=== PATIENT | female | born 1955 | race Caucasian/White ===

== ENCOUNTER 2024-12-19 14:21 | Emergency (ER) | payer MEDICARE, MEDICAID ==
[~2024-12-19] VITALS: Ht 162.6 cm; Wt 59.1 kg
[2024-12-19 14:22] VITALS: BP 109/63; TEMP 98.4
[2024-12-19] MEDS ORDERED: NAPR-56 PO (14:58)
--- NOTE | 2024-12-19 14:59 | Physician Documentation ---
History of Present Illness ~ Chief Complaint: Bite-insect Stated Complaint: SPIDER BITE Time Seen by MD: 14:44 OK to notify your PCP?: Yes Source: patient Mode of Arrival: POV Exam Limitations: no limitations HPI 69-year-old right-handed female with chief complaint discoloration to her right forearm and elbow which she noticed a few days ago. 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 She denies any elbow pain. She denies any decreased range of motion. She states the discoloration has been gradually going from her elbow down into her forearm and she is concerned about this. She states this all started after she leaned with her elbow on her bathtub which is something she does all the time. She states she did not hit her elbow, but after she did this she states my elbow was really sticking out. No pre-arrival treatment. Medication Reconciliation Allergies: Coded Allergies: No Known Allergies (Unverified , 12/19/24) Past Medical History Past Medical History: No Pertinent History Past Surgical History: noncontributory Drug Use: none Lives with: Mother Review of Systems All Other Systems at this time: Reviewed and Negative Physical Exam Vital Signs: Temperature: 98.4, Source: Temporal, Heart Rate: 85, Respiratory Rate: 18, BP: 109/63, Pulse Oximetry: 99, Weight: 59.090 Oxygen Flow Rate: 0 Physical Exam General Appearance: Alert, WD/WN. NAD. HEENT: NCAT, PERRL, EOMI. Neck: Supple, trachea midline. Cardiovascular: RRR. No m/r/g. Lungs: CTAB. Breathing unlabored for Min Extremities: Right elbow violaceous and green colored ecchymosis over the olecranon and antecubital fossa that spreads down into the mid to proximal forearm. Active range motion of wrist elbow and shoulder are all complete. No warmth, or induration. No abrasions over the skin. Skin: Warm/dry, normal color Neurological: Alert and oriented x4, normal gait. Psychiatric: Affect congruent with mood. Progress Results/Orders Results/Orders Vital Signs 12/19/24 14:22 Temp 98.4 Pulse 85 Resp 18 B/P (MAP) 109/63 Pulse Ox 99 O2 Flow Rate 0 Medical Decision Making Elbow Diff Dx:Considerations: Include: Abrasion, Arthritis, Contustion, DJD, Fracture-humerus, Fracture-radial head, Fracture-radius, Fracture-ulna, Gout, Hematoma, Laceration, Neurovascular injury, Olecranon bursitis, Open fracture, Osteomyelitis, Radial head subluxation, Rheumatoid arthritis, Septic, Sprain, Ulcer, Other Departure Time of Disposition: 14:57 Disposition: 01 HOME / SELF CARE / HOMELESS Impression: Primary Impression: Olecranon bursitis, right elbow Additional Impression: Contusion Qualified Codes: S50.01XA - Contusion of right elbow, initial encounter Condition: Stable Discharge Instructions: Elbow Bursitis Additional Instructions: COMPRESSION TO HELP THE BRUISE TO REABSORB MORE QUICKLY AND THE FLUID IN YOUR ELBOW TO REABSORB THERE ARE NO SIGNS ON EXAM THAT THIS IS INFECTIOUS IN ORIGIN I SENT NAPROXEN TO PHARMACY FOR YOU Referrals: NO PRIMARY CARE PROVIDER (PCP) Prescriptions Naproxen (Naproxen) 500 Mg Tablet 1 TAB PO Q12H, #20 TAB Prov: DINORAH FLORES 12/19/24 Education Educated: Patient Educated regarding: diagnosis, treatment, need for follow up Signature Scribe Signature: X Attestation: DINORAH NÚÑEZ Dec 19, 2024 14:59
[2024-12-19 15:04] VITALS: PULSE 79; RESP 18; O2SAT 98
== END 2024-12-19 15:05 | disposition home or self-care (01) ==
LOC: ER 14:23
DX: S50.01XA Contusion of right elbow, initial encounter (principal); M70.21 Olecranon bursitis, right elbow; W57.XXXA Bitten or stung by nonvenomous insect and other nonvenomous arthropods, initial encounter; Y93.89 Activity, other specified; Y92.89 Other specified places as the place of occurrence of the external cause; Y99.8 Other external cause status
CPT/HCPCS: 99282; A6449

== ENCOUNTER 2025-05-30 13:22 | Emergency (ER) | payer MEDICARE, MEDICAID ==
[~2025-05-30] VITALS: Ht 175.3 cm; Wt 56.8 kg
[2025-05-30 13:23] VITALS: TEMP 98
--- NOTE | 2025-05-30 14:21 | RADIOLOGY REPORT ---
Procedure: DI WRIST, COMPLETE (3VW MIN) 05/30/2025 01:47 PM TECHNIQUE: DI WRIST, COMPLETE (3VW MIN) Indication: WRIST PAIN Comparison: None FINDINGS: Bones: There is a nondisplaced distal radius fracture. Soft tissues: Unremarkable. No radiopaque foreign body. IMPRESSION: 1. Nondisplaced distal radius fracture.
--- NOTE | 2025-05-30 14:23 | RADIOLOGY REPORT ---
EXAM: DI FOREARM,INCL.ONE JOINT HISTORY: ARM PAIN COMPARISON: None TECHNIQUE: AP and lateral views of the left forearm were performed. FINDINGS/IMPRESSION: There is a nondisplaced distal radius fracture.
[2025-05-30] MEDS: HYDROcodone/acetaminophen 10/325mg tab PO ONE (15:25)
--- NOTE | 2025-05-30 15:57 | Physician Documentation ---
History of Present Illness ~ Chief Complaint: Arm Pain Stated Complaint: FALL/ARM PAIN Time Seen by MD: 15:14 HPI Presents to the ER two days after a fall with resultant left wrist pain. Bruising noted. No obvious deformity. Denies other concerns or injuries. Tetanus within 5 years: No Medication Reconciliation Allergies: Coded Allergies: No Known Allergies (Unverified , 12/19/24) Scheduled Ibuprofen (Ibuprofen), 1 TAB PO Q8H Past Medical History Past Medical History: No Pertinent History Past Surgical History: noncontributory Drug Use: none Lives with: Mother Review of Systems ROS As stated above in the HPI, otherwise all systems are reviewed and negative. Physical Exam Vital Signs: Temperature: 98.0, Source: Temporal, Heart Rate: 88, Respiratory Rate: 16, BP: 136/77, Pulse Oximetry: 98, Weight: 56.800 Oxygen Flow Rate: 0 Physical Exam General: Alert, no apparent distress. HEENT: PERRL, EOMI, no injection, moist mucous membranes. Neck: Full range of motion. Respiratory: Lungs clear, no respiratory distress. Chest: No accessory muscle use. Cardiovascular: Regular rate and rhythm, no murmurs. Gastrointestinal: Soft, nontender, nondistended. Bowels sounds present. Extremities: Reduced range of motion to left wrist with ecchymosis noted. CMS to fingers intact distally. Strong radial pulse. Neurologic: Oriented x4. Psychiatric: Normal mood and affect. Skin: Normal color, warm and dry. No edema, no ecchymosis. Progress Progress Note 1604: Sugar-tong splint/envelope sling placed by tool technician. CMS distally intact after placement. Results/Orders Results/Orders Orders - LUISA SEBASTIAN NP Ortho Orders (05/30/25 ) Ketorolac Trometh 15mg/Ml Vial (Toradol (05/30/25 16:05) Ortho Orders (05/30/25 ) Completed Orders - LUISA SEBASTIAN NP Hydrocodone/Apap 10/325 (Halma 10/325mg (05/30/25 15:20) Medications Received in ER Medications (Trade) Dose Ordered Sig/Caroline Route PRN Reason Start Time Stop Time Status Last Admin Dose Admin (Halma 10/325mg tab) 1 tab ONCE ONCE PO 05/30/25 15:20 05/30/25 15:21 DC 12/7/25 15:25 1 TAB Vital Signs 05/30/25 05/30/25 05/30/25 13:23 15:25 15:47 Temp 98.0 Pulse 88 Resp 16 16 B/P (MAP) 136/77 Pulse Ox 98 O2 Flow Rate 0 Medical Decision Making Additional information obtaine: family Findings Friend accompanies patient. Good historian. General Diff Dx:Considerations: Include: Abrasion, Contusion, Fracture, Hematoma, Laceration, Malunion, Neurovascular injury, Open fracture, Sprain Shoulder Diff Dx:Consideration: Include: Other Elbow Diff Dx:Considerations: Include: Other Wrist Diff Dx:Considerations: Include: Other Hand Diff Dx:Considerations: Include: Other Finger Diff Dx:Considerations: Include: Other Additional Comment Xray shows distal left radius fracture. No obvious deformity. CMS intact. Placed in sugar tong and envelope sling. Departure Time of Disposition: 15:57 Disposition: 01 HOME / SELF CARE / HOMELESS Impression: Primary Impression: Fracture of radius Qualified Codes: S52.572A - Other intraarticular fracture of lower end of left radius, initial encounter for closed fracture Condition: Stable Discharge Instructions: Cast or Splint Care, Adult, Wrist Fracture Treated With Immobilization Additional Instructions: Ibuprofen 600 mg 3 times a day with food for pain. Keep Splint intact. Keep the envelope sling intact. Ice the sore area frequently. Follow up with your primary care provider and get a referral to hand specialist Dr. Montoya. Some insurances will let you make an appointment directly with an orthopedist, and not require a primary care provider visit. Most do require a primary care and referral. Referrals: NO PRIMARY CARE PROVIDER (PCP) JOHNATHAN MONTOYA Jr., MD Prescriptions Ibuprofen (Ibuprofen) 600 Mg Tablet 1 TAB PO Q8H for pain for 10 Days, #30 TAB 0 Refills with food Prov: LUISA SEBASTIAN NP 05/30/25 Education Educated: Patient, Family Educated regarding: diagnosis, treatment, prognosis, need for follow up Signature Scribe Signature: x Attestation: The note accurately reflects work and decisions made by me.Luisa Sebastian - SINA 05/30/25 16:00 LUISA SEBASTIAN NP May 30, 2025 15:57
[2025-05-30] MEDS ORDERED: IBUP600T52 PO (15:59)
[2025-05-30] MEDS ORDERED: ibuprofen tablet 400 MG TABLET PO ONE (16:00)
[2025-05-30] MEDS: ketorolac trometh 15mg/ml vial 15 MG/ML ML IM ONE (16:15)
[2025-05-30 17:15] VITALS: BP 132/71; PULSE 71; RESP 16; O2SAT 98
== END 2025-05-30 17:23 | disposition home or self-care (01) ==
LOC: ER 13:22
DX: S52.572A Other intraarticular fracture of lower end of left radius, initial encounter for closed fracture (principal); Z79.899 Other long term (current) drug therapy; W18.30XA Fall on same level, unspecified, initial encounter; Y93.89 Activity, other specified; Y92.89 Other specified places as the place of occurrence of the external cause; Y99.8 Other external cause status
CPT/HCPCS: 29125; 73090; 73110; 96372; 99284; A4565; A6449; J1885